=== PATIENT | female | born 1950 | race Caucasian/White ===

== ENCOUNTER 2017-10-20 13:15 | Inpatient (IN) | payer OTHER ==
[~2017-10-20] VITALS: Ht 167.6 cm; Wt 115.4 kg
[2017-11-08] MEDS ORDERED: FLUO-1 PO (12:34)
[2017-11-08] MEDS ORDERED: ACET650T11 PO (12:34)
[2017-11-08] MEDS ORDERED: LOSA50TA37 PO (12:34)
[2017-11-08] MEDS ORDERED: HYDR25TA4 PO (12:34)
[2017-11-08] MEDS ORDERED: AMLO5TAB16 PO (12:34)
[2017-11-08] MEDS ORDERED: CYCL-1 PO (12:34)
[2017-11-08] MEDS ORDERED: GABA600T2 PO (12:34)
[2017-11-08] MEDS ORDERED: HYDR50TA65 PO (12:34)
[2017-11-08] MEDS ORDERED: TIZA-248 PO (12:34)
[2017-11-08 13:59] LABS: CLARITY,URINE SLIGHTLY CLOUDY (Clear); COLOR,URINE YELLOW (Yellow); GLUCOSE, URINE NEGATIVE (Neg); KETONES,URINE NEGATIVE (Neg); LEUKOCYTE ESTERASE ,URINE NEGATIVE (Neg); NITRITES, URINE NEGATIVE (Neg); OCCULT BLOOD,URINE NEGATIVE (Neg); PROTEIN,URINE NEGATIVE (Neg); UROBILINOGEN,URINE 0.2 E.U/dL (0.2-1.0)
[2017-11-08 14:07] LABS: UA COLLECTION TYPE NON-SPECIFIED
[2017-11-08 14:15] LABS: BACTERIA,URINE NONE SEEN /HPF (Neg); RBC,URINE 0-2 /HPF (0-2); SQUAMOUS EPITHELIAL CELL,UR FEW /LPF (FEW); WBC,URINE NONE SEEN /HPF (0-4)
[2017-11-10] VITALS (20 sets, daily range): BP systolic 108–164; BP diastolic 50–87
[2017-11-10] MEDS ORDERED: ringers solution, lacted 1,000 ML IV SCH ×2 (05:00→10:50)
[2017-11-10] MEDS ORDERED: vancomycin inj 1,500 MG in normal saline 300ml IV soln IV ONE (05:30)
[2017-11-10] MEDS ORDERED: famotidine 20mg tablet PO ONE (05:30)
[2017-11-10] MEDS ORDERED: LIDOcaine 1% (10mg/ml) 2ml vial ONE (06:37)
[2017-11-10] MEDS ORDERED: MORPHINE SULFATE/PF 0.5 MG/ML 10ML AMPUL ONE ×2 (06:54→07:29)
[2017-11-10] MEDS ORDERED: vancomycin 1,000mg inj ONE (06:55)
[2017-11-10] MEDS ORDERED: ketorolac trometh. 30mg/ml inj. ONE (06:55)
[2017-11-10] MEDS ORDERED: ROPIVAcaine 0.5% (5mg/ml) 30ml vial ONE (06:55)
[2017-11-10] MEDS ORDERED: cloNIDine hcl/PF 100mcg/ml inj ONE (07:22)
[2017-11-10] MEDS ORDERED: fentaNYL/PF 50MCG/1 ML 2ML syringe ONE ×3 (07:24→09:54)
[2017-11-10] MEDS ORDERED: tranexamic acid inj. 1,000 MG in normal saline 100ml IV soln 90 ML IV ONE (07:25)
[2017-11-10] MEDS ORDERED: midazolam 2 mg/2 ml injection ONE ×2 (07:25)
[2017-11-10] MEDS ORDERED: tetracaine 1% (10mg/ml) pres. free inj. ONE (07:30)
[2017-11-10] MEDS ORDERED: furosemide 20 MG/2 ML vial ONE (07:37)
[2017-11-10] MEDS ORDERED: sevoflurane 250ml liquid IH ONE (07:37)
[2017-11-10] MEDS ORDERED: dexamethasone 4mg/ml inj ONE (07:51)
[2017-11-10] MEDS ORDERED: rocuronium 10mg/ml inj IV ONE (08:33)
[2017-11-10] MEDS ORDERED: phenylephrine 10mg/ml inj IV ONE (08:33)
[2017-11-10] MEDS ORDERED: ePHEDrine 50MG/ML INJ. ONE (08:33)
[2017-11-10] MEDS ORDERED: propofol inj 20 ML IV ONE (08:33)
[2017-11-10] MEDS ORDERED: LIDOcaine 2% (20mg/ml) 5ml vial ONE (08:33)
[2017-11-10] MEDS ORDERED: clindamycin phosphate 150mg/ml inj. ONE (10:33)
[2017-11-10] MEDS ORDERED: ondansetron/PF 4mg/2ml inj IV PRN ×2 (10:50→11:15)
[2017-11-10] MEDS ORDERED: meperidine/PF 25mg/ml syringe IV PRN ×3 (10:50)
[2017-11-10] MEDS ORDERED: proCHLORperazine 10 MG/2 ml inj IV PRN (10:50)
[2017-11-10] MEDS ORDERED: morphine 2 MG/ML inj. syringe IV PRN ×2 (10:50)
[2017-11-10] MEDS ORDERED: meperidine/PF 50mg/ml syringe IV PRN ×3 (10:58→10:59)
[2017-11-10] MEDS ORDERED: bisacodyl 10mg suppository rectal RC PRN (11:15)
[2017-11-10] MEDS ORDERED: diphenhydrAMINE 25mg capsule PO PRN ×2 (11:15)
[2017-11-10] MEDS ORDERED: magnesium hydroxide 30ml (MOM) UD suspension PO PRN (11:15)
[2017-11-10] MEDS ORDERED: acetaminophen 325mg tablet PO PRN (11:15)
[2017-11-10] MEDS ORDERED: gabapentin 300mg capsule PO SCH (13:00)
[2017-11-10] MEDS: oxyCODONE IR 5mg (immed. release) tablet PO PRN ×3 (13:56→20:27)
[2017-11-10] MEDS: acetaminophen 325mg tablet PO SCH ×2 (13:57→20:26)
[2017-11-10] MEDS ORDERED: tranexamic acid inj. 1,000 MG in normal saline 100ml IV soln 100 ML IV ONE (14:00)
[2017-11-10] MEDS ORDERED: non-formulary drug (Acetaminophen 2 TAB) PO PRN (16:10)
[2017-11-10] MEDS ORDERED: HYDROXYZINE HCL 25 MG PO PRN (16:10)
[2017-11-10] MEDS ORDERED: tizanidine 4mg tablet PO PRN (16:10)
[2017-11-10] MEDS ORDERED: cyclobenzaprine 10mg tablet PO PRN (16:23)
[2017-11-10] MEDS: clindamycin-Cleocin 900mg/D5W 50 ML IV SCH (16:27)
[2017-11-10] MEDS ORDERED: hydrOXYzine 25 MG tablet PO PRN (17:05)
[2017-11-10] MEDS: potassium cl 20mEq in 1/2 NS 1,000 ML IV SCH ×2 (17:20→19:14)
[2017-11-10] MEDS ORDERED: vancomycin/NS 1 GM ADD-VANTAGE 250 ML IV SCH (20:00)
[2017-11-10] MEDS: celeCOXIB 100mg capsule PO SCH (20:26)
[2017-11-10] MEDS: losartan 50mg tablet PO SCH (20:27)
[2017-11-10] MEDS: sennosides 8.6mg tablet PO SCH (20:27)
[2017-11-10] MEDS ORDERED: gabapentin 400mg capsule PO SCH ×2 (21:00)
[2017-11-10] MEDS ORDERED: non-formulary drug (Gabapentin 2 TAB) PO SCH (21:00)
[2017-11-10] MEDS: cyclobenzaprine 10mg tablet PO SCH (22:39)
[2017-11-10] MEDS: gabapentin 300mg capsule PO SCH (22:39)
[2017-11-11] MEDS: clindamycin-Cleocin 900mg/D5W 50 ML IV SCH ×2 (00:15→08:35)
[2017-11-11 02:00] VITALS: BP 115/60
[2017-11-11] MEDS: acetaminophen 325mg tablet PO SCH ×4 (02:52→19:11)
[2017-11-11] MEDS: oxyCODONE IR 5mg (immed. release) tablet PO PRN ×5 (02:54→20:28)
[2017-11-11] MEDS: potassium cl 20mEq in 1/2 NS 1,000 ML IV SCH ×3 (03:14→14:45)
[2017-11-11 06:00] VITALS: BP 133/66
[2017-11-11 06:44] LABS: BASOPHILS % (AUTO) 0.2 % (0-1); EOSINOPHILS % (AUTO) 0.6 % (0-6); HEMATOCRIT 24.8 % (35.0-45.0); HEMOGLOBIN 8.8 g/dl (12.0-16.0); LYMPHOCYTES # (AUTO) 0.5 X10'3 (1.1-4.8); LYMPHOCYTES % (AUTO) 10.6 % (21-51); MEAN CORPUSCULAR HGB CONC 35.6 % (33.0-36.5); MEAN CORPUSCULAR VOLUME 92.8 FL (78-98); MEAN PLATELET VOLUME 8.3 FL (7.4-10.4); MONOCYTES # (AUTO) 0.3 X10'3 (0-0.9); MONOCYTES % (AUTO) 6.7 % (2-12); NEUTROPHILS # (AUTO) 4.1 X10'3 (1.8-7.7); NEUTROPHILS % (AUTO) 81.9 % (42-75); PLATELET COUNT 78 X10'3 (140-440); RED BLOOD COUNT 2.67 X10'6 (4.20-5.60)
[2017-11-11 06:51] LABS: ANION GAP 8 (8-16); CHLORIDE 107 MMOL/L (99-107); POTASSIUM 4.7 MMOL/L (3.5-5.1); SODIUM 142 MMOL/L (135-145); TOTAL CARBON DIOXIDE 27.4 MMOL/L (24-32)
[2017-11-11] MEDS ORDERED: enoxaparin 40mg/0.4ml syringe SQ SCH (08:00)
[2017-11-11] MEDS: celeCOXIB 100mg capsule PO SCH ×2 (08:36→19:11)
[2017-11-11] MEDS: HYDROchlorothiazide 25mg tablet PO SCH (08:38)
[2017-11-11] MEDS: cyclobenzaprine 10mg tablet PO SCH ×2 (08:38→19:11)
[2017-11-11] MEDS: losartan 50mg tablet PO SCH ×2 (08:38→19:10)
[2017-11-11] MEDS: gabapentin 300mg capsule PO SCH ×2 (08:39→19:11)
[2017-11-11] MEDS: FLUoxetine 20mg capsule PO SCH (08:39)
[2017-11-11] MEDS: amLODIPine 5mg tablet PO SCH (08:39)
[2017-11-11 10:00] VITALS: BP 117/48
[2017-11-11 14:00] VITALS: BP 130/60
[2017-11-11 18:00] VITALS: BP 132/92
[2017-11-11] MEDS: sennosides 8.6mg tablet PO SCH (19:12)
[2017-11-11 22:00] VITALS: BP 114/48
[2017-11-12] MEDS: acetaminophen 325mg tablet PO SCH ×2 (02:00→08:00)
[2017-11-12] MEDS: potassium cl 20mEq in 1/2 NS 1,000 ML IV SCH (03:14)
[2017-11-12] MEDS: oxyCODONE IR 5mg (immed. release) tablet PO PRN ×4 (04:47→16:19)
[2017-11-12 05:54] LABS: HEMATOCRIT 23.8 % (35.0-45.0); HEMOGLOBIN 8.4 g/dl (12.0-16.0); MEAN CORPUSCULAR HEMOGLOBIN 33.2 PG (27.0-31.0); MEAN CORPUSCULAR HGB CONC 35.4 % (33.0-36.5); MEAN CORPUSCULAR VOLUME 93.9 FL (78-98); MEAN PLATELET VOLUME 8.5 FL (7.4-10.4); PLATELET COUNT 58 X10'3 (140-440); RED BLOOD COUNT 2.54 X10'6 (4.20-5.60); WHITE BLOOD COUNT 2.9 X10'3 (4.5-11.0)
[2017-11-12 06:00] VITALS: BP 144/55
[2017-11-12 07:43] LABS: PLATELET ESTIMATE DECREASED; TOTAL CELLS COUNTED 100
[2017-11-12 07:47] LABS: SPHEROCYTES FEW
[2017-11-12] MEDS: celeCOXIB 100mg capsule PO SCH ×2 (07:58→19:17)
[2017-11-12] MEDS: gabapentin 300mg capsule PO SCH ×2 (07:58→19:17)
[2017-11-12] MEDS: cyclobenzaprine 10mg tablet PO SCH ×2 (08:00→19:17)
[2017-11-12] MEDS: HYDROchlorothiazide 25mg tablet PO SCH (08:00)
[2017-11-12] MEDS: FLUoxetine 20mg capsule PO SCH (08:00)
[2017-11-12] MEDS: amLODIPine 5mg tablet PO SCH (08:01)
[2017-11-12] MEDS: losartan 50mg tablet PO SCH ×2 (08:01→19:17)
[2017-11-12] MEDS: aspirin 81mg tab.chew PO SCH ×2 (08:01→19:18)
[2017-11-12 10:00] VITALS: BP 149/68
[2017-11-12] MEDS ORDERED: acetaminophen 325mg tablet PO PRN (11:15)
[2017-11-12 18:00] VITALS: BP 143/61
[2017-11-12] MEDS: sennosides 8.6mg tablet PO SCH (20:39)
[2017-11-12 22:00] VITALS: BP 123/61
[2017-11-13] MEDS: oxyCODONE IR 5mg (immed. release) tablet PO PRN ×3 (02:08→12:32)
[2017-11-13 06:00] VITALS: BP 111/53
[2017-11-13 06:24] LABS: BASOPHILS % (AUTO) 0.3 % (0-1); EOSINOPHILS # (AUTO) 0.1 X10'3 (0-0.9); EOSINOPHILS % (AUTO) 2.7 % (0-6); HEMATOCRIT 22.5 % (35.0-45.0); LYMPHOCYTES # (AUTO) 0.7 X10'3 (1.1-4.8); LYMPHOCYTES % (AUTO) 24.5 % (21-51); MEAN CORPUSCULAR HEMOGLOBIN 33.3 PG (27.0-31.0); MEAN CORPUSCULAR HGB CONC 35.5 % (33.0-36.5); MEAN CORPUSCULAR VOLUME 93.6 FL (78-98); MEAN PLATELET VOLUME 7.8 FL (7.4-10.4); MONOCYTES # (AUTO) 0.2 X10'3 (0-0.9); MONOCYTES % (AUTO) 7.2 % (2-12); NEUTROPHILS # (AUTO) 1.8 X10'3 (1.8-7.7); NEUTROPHILS % (AUTO) 65.3 % (42-75); PLATELET COUNT 63 X10'3 (140-440); RED CELL DISTRIBUTION WIDTH 13.1 % (11.5-14.5); WHITE BLOOD COUNT 2.7 X10'3 (4.5-11.0)
[2017-11-13 07:12] LABS: HYPOCHROMASIA 1+; PLATELET ESTIMATE DECREASED; TOTAL CELLS COUNTED 100
[2017-11-13] MEDS: celeCOXIB 100mg capsule PO SCH (07:53)
[2017-11-13] MEDS: aspirin 81mg tab.chew PO SCH (07:53)
[2017-11-13] MEDS: gabapentin 300mg capsule PO SCH (07:53)
[2017-11-13] MEDS: HYDROchlorothiazide 25mg tablet PO SCH (07:53)
[2017-11-13] MEDS: FLUoxetine 20mg capsule PO SCH (07:53)
[2017-11-13] MEDS: losartan 50mg tablet PO SCH (07:53)
[2017-11-13] MEDS: amLODIPine 5mg tablet PO SCH (07:53)
[2017-11-13] MEDS: cyclobenzaprine 10mg tablet PO SCH (07:54)
[2017-11-13 10:00] VITALS: BP 107/57
[2017-11-13] MEDS ORDERED: ondansetron 4mg rapidly disintigrating tab PO ONE (10:00)
[2017-11-13] MEDS ORDERED: ASPI-1265 PO (10:10)
== END 2017-11-13 12:40 | disposition home or self-care (01) | DRG 470 ==
LOC: PAS IN 11-10 05:58 → EDSTATUS 11-10 07:30 → ORTHO 4S 11-10 13:05
PROVIDERS: ADMIT Orthopaedic Surgery; ATTEND Orthopaedic Surgery
PROC: 0QHB04Z Insertion of Internal Fixation Device into Right Lower Femur, Open Approach (ICD-10-PCS; 2017-11-10)
PROC: 0SRC0J9 Replacement of Right Knee Joint with Synthetic Substitute, Cemented, Open Approach (ICD-10-PCS; principal; 2017-11-10 07:37)
DX: M17.11 Unilateral primary osteoarthritis, right knee (principal); D62 Acute posthemorrhagic anemia; I10 Essential (primary) hypertension; F41.9 Anxiety disorder, unspecified; M21.00 Valgus deformity, not elsewhere classified, unspecified site; F32.9 Major depressive disorder, single episode, unspecified; G89.29 Other chronic pain; M54.9 Dorsalgia, unspecified; Z79.899 Other long term (current) drug therapy; Z88.0 Allergy status to penicillin; Z87.891 Personal history of nicotine dependence; Y93.89 Activity, other specified
CPT/HCPCS: 36415; 80051; 81001; 85025; 87070; 97110; 97116; 97162; 97530; A6255; A6455; A7000; C1713; C1758; C1776; C9250; J0735; J1100; J1650; J1885; J1940; J2001; J2250; J2274; J2370; J2704; J2795; J3010; J3370; J3490; J7030; J7120

== ENCOUNTER 2018-08-03 08:02 | Inpatient (IN) | payer MEDICARE ==
[2018-08-02 13:57] LABS: BASOPHILS % (AUTO) 0.1 % (0-1); EOSINOPHILS # (AUTO) 0.2 X10'3 (0-0.9); EOSINOPHILS % (AUTO) 3.8 % (0-6); LYMPHOCYTES # (AUTO) 0.7 X10'3 (1.1-4.8); LYMPHOCYTES % (AUTO) 16.4 % (21-51); MEAN CORPUSCULAR HEMOGLOBIN 30.3 PG (27.0-31.0); MEAN CORPUSCULAR HGB CONC 33.5 % (33.0-36.5); MEAN CORPUSCULAR VOLUME 90.3 FL (78-98); MEAN PLATELET VOLUME 8.7 FL (7.4-10.4); MONOCYTES # (AUTO) 0.3 X10'3 (0-0.9); MONOCYTES % (AUTO) 7.1 % (2-12); NEUTROPHILS % (AUTO) 72.6 % (42-75); PRE OP HEMATOCRIT 32.2 % (35.0-45.0); PRE OP PLATELET COUNT 105 X10'3 (140-440); RED BLOOD COUNT 3.57 X10'6 (4.20-5.60); RED CELL DISTRIBUTION WIDTH 13.8 % (11.5-14.5)
[2018-08-02 13:59] LABS: PRE OP HEMOGLOBIN 10.8 g/dL (12.0-16.0)
[2018-08-02 14:03] LABS: ALBUMIN 3.5 G/DL (3.4-5.0); ALBUMIN/GLOBULIN RATIO 0.8 (1.1-1.5); ALKALINE PHOSPHATASE 90 IU/L (46-116); BLOOD UREA NITROGEN 22 MG/DL (7-18); BUN/CREATININE RATIO 15.3 (6.6-38.0); CALCIUM 9.2 MG/DL (8.5-10.1); CHLORIDE 105 MMOL/L (99-107); CREATININE 1.44 MG/DL (0.40-0.90); PRE OP ALT 23 U/L (30-65); PRE OP ANION GAP 8 (8-16); PRE OP AST 24 U/L (10-37); PRE OP BILIRUB, TOTAL 0.4 MG/DL (0.0-1.0); PRE OP GLUCOSE 113 MG/DL (70-104); PRE OP POTASSIUM 4.3 MMOL/L (3.4-5.1); PRE OP SODIUM 140 MMOL/L (135-145); TOTAL CARBON DIOXIDE 27.4 MMOL/L (24-32); TOTAL PROTEIN 7.8 G/DL (6.4-8.2); eGFR 36 ML/MIN
[~2018-08-03] VITALS: Ht 167.6 cm; Wt 118.5 kg
[2018-08-03] VITALS (17 sets, daily range): BP systolic 88–144; BP diastolic 40–90
[2018-08-03] MEDS: gabapentin 300mg capsule PO ONE ×2 (05:30→08:45)
[~2018-08-03 08:02] MED LIST: AMLO5TAB16 PO; CLINDAmcin 900mg/NS 50ml IVPB 50 ML IV ONE; CYCL-1 PO; FLUO-1 PO; GABA600T2 PO; HYDR25TA4 PO; HYDR50TA65 PO; LIDOcaine 1% (10mg/ml) 2ml vial ONE; LOSA50TA21 PO; ROPIVAcaine 0.5% (5mg/ml) 30ml vial ONE; TIZA-248 PO; Thrombin (Bovine) 5,000 unit vial TP ONE; acetaminophen 325mg tablet PO ONE; epiNEPHrine 1 mg/ml inj ONE; famotidine 20mg tablet PO ONE; ketorolac trometh. 30mg/ml inj. ONE; metoclopramide 5 mg/ml inj IV ONE; morphine 10mg/ml inj. ONE; oxyCODONE SR 10mg (sust. release) tab -2 tabs (20mg) PO ONE; ringers solution, lacted 1,000 ML IV SCH; tranexamic acid inj. 1,000 MG in normal saline 100ml IV soln 90 ML IV ONE; vancomycin 1,000mg inj ONE; vancomycin inj 1,500 MG in normal saline 300ml IV soln IV ONE
[2018-08-03] MEDS ORDERED: TRAM50TA2 PO (08:25)
[2018-08-03] MEDS ORDERED: MULT-1181 (08:25)
[2018-08-03] MEDS ORDERED: MULT-1141 PO (08:25)
[2018-08-03] MEDS ORDERED: MIDAZolam 1mg/ml 10ml vial ONE (10:26)
[2018-08-03] MEDS ORDERED: fentaNYL/PF 50MCG/1 ML 2ML syringe ONE (10:26)
[2018-08-03] MEDS ORDERED: morphine /PF 1mg/ml 10ml inj. ONE (10:34)
[2018-08-03] MEDS ORDERED: LIDOcaine 1%/PF 5ML 10 MG/ML VIAL ONE (10:46)
[2018-08-03] MEDS ORDERED: propofol inj 20 ML IV ONE (10:46)
[2018-08-03] MEDS ORDERED: ringers solution, lacted 1,000 ML IV SCH (12:24)
[2018-08-03] MEDS ORDERED: ondansetron/PF 4mg/2ml inj IV PRN ×3 (12:25→13:25)
[2018-08-03] MEDS ORDERED: meperidine/PF 25mg/ml syringe IV PRN ×3 (12:25)
[2018-08-03] MEDS ORDERED: proCHLORperazine 10 MG/2 ml inj IV PRN (12:25)
[2018-08-03] MEDS ORDERED: morphine 4 MG/ML inj SYRINge IV PRN ×2 (12:25)
[2018-08-03] MEDS ORDERED: Thrombin (Bovine) 5,000 unit vial TP ONE (13:02)
[2018-08-03] MEDS ORDERED: naloxone 2mg/2ml inj 2 MG in normal saline 500ml IV soln 500 ML IV PRN (13:19)
[2018-08-03] MEDS ORDERED: diphenhydrAMINE 50 mg/ml inj IV PRN (13:20)
[2018-08-03] MEDS: acetaminophen 325mg tablet PO SCH ×2 (13:23→20:27)
[2018-08-03] MEDS ORDERED: HYDROmorphone 1 mg/ml syringe IV PRN (13:25)
[2018-08-03] MEDS ORDERED: magnesium hydroxide 30ml (MOM) UD suspension PO PRN (13:25)
[2018-08-03] MEDS ORDERED: bisacodyl 10mg suppository rectal RC PRN (13:25)
[2018-08-03] MEDS ORDERED: acetaminophen 325mg tablet PO PRN (13:25)
[2018-08-03] MEDS ORDERED: diphenhydrAMINE 25mg capsule PO PRN ×2 (13:25)
[2018-08-03] MEDS ORDERED: oxyCODONE IR 5mg (immed. release) tablet PO PRN (13:25)
[2018-08-03] MEDS: clindamycin 300mg/D5W 50mL 50 ML IV SCH ×2 (14:07→19:59)
[2018-08-03] MEDS: potassium cl 20mEq in 1/2 NS 1,000 ML IV SCH ×2 (16:10→21:23)
[2018-08-03] MEDS ORDERED: vancomycin/NS 1 GM ADD-VANTAGE 250 ML IV SCH (20:00)
[2018-08-03] MEDS: gabapentin 300mg capsule PO SCH (20:27)
[2018-08-03] MEDS: sennosides 8.6mg tablet PO SCH (20:27)
[2018-08-03] MEDS: oxyCODONE IR 5mg (immed. release) tablet PO PRN (21:56)
[2018-08-04] VITALS (8 sets, daily range): BP systolic 108–160; BP diastolic 38–63
[2018-08-04] MEDS: clindamycin 300mg/D5W 50mL 50 ML IV SCH ×3 (01:27→13:17)
[2018-08-04] MEDS: acetaminophen 325mg tablet PO SCH ×4 (01:27→20:23)
[2018-08-04] MEDS: oxyCODONE IR 5mg (immed. release) tablet PO PRN ×5 (02:44→22:08)
[2018-08-04] MEDS: potassium cl 20mEq in 1/2 NS 1,000 ML IV SCH (05:23)
[2018-08-04 07:03] LABS: BASOPHILS % (AUTO) 0.1 % (0-1); EOSINOPHILS # (AUTO) 0.1 X10'3 (0-0.9); EOSINOPHILS % (AUTO) 1.2 % (0-6); HEMATOCRIT 24.1 % (35.0-45.0); HEMOGLOBIN 7.9 g/dl (12.0-16.0); LYMPHOCYTES # (AUTO) 0.4 X10'3 (1.1-4.8); LYMPHOCYTES % (AUTO) 8.5 % (21-51); MEAN CORPUSCULAR HEMOGLOBIN 29.7 PG (27.0-31.0); MEAN CORPUSCULAR HGB CONC 32.7 % (33.0-36.5); MEAN CORPUSCULAR VOLUME 90.8 FL (78-98); MEAN PLATELET VOLUME 9.2 FL (7.4-10.4); MONOCYTES # (AUTO) 0.2 X10'3 (0-0.9); MONOCYTES % (AUTO) 5.2 % (2-12); NEUTROPHILS # (AUTO) 3.8 X10'3 (1.8-7.7); PLATELET COUNT 79 X10'3 (140-440); RED BLOOD COUNT 2.66 X10'6 (4.20-5.60); RED CELL DISTRIBUTION WIDTH 13.6 % (11.5-14.5); WHITE BLOOD COUNT 4.5 X10'3 (4.5-11.0)
[2018-08-04 07:10] LABS: ANION GAP 5 (8-16); CHLORIDE 106 MMOL/L (99-107); POTASSIUM 5.2 MMOL/L (3.5-5.1); SODIUM 137 MMOL/L (135-145)
[2018-08-04] MEDS ORDERED: tizanidine 4mg tablet PO PRN (07:30)
[2018-08-04] MEDS: cyclobenzaprine 10mg tablet PO SCH (08:00)
[2018-08-04] MEDS: hydrOXYzine 25 MG tablet PO SCH ×2 (08:00→20:00)
[2018-08-04] MEDS: FLUoxetine 20mg capsule PO SCH (08:31)
[2018-08-04] MEDS: losartan 50mg tablet PO SCH ×2 (08:33→20:22)
[2018-08-04] MEDS: amLODIPine 5mg tablet PO SCH (08:33)
[2018-08-04] MEDS: beta-carotene(A) w/C & E + minerals tab PO SCH (08:33)
[2018-08-04] MEDS: aspirin 81mg tablet.DR PO SCH (08:34)
[2018-08-04] MEDS: gabapentin 300mg capsule PO SCH ×3 (08:35→20:23)
[2018-08-04] MEDS: HYDROchlorothiazide 25mg tablet PO SCH (08:36)
[2018-08-04] MEDS ORDERED: pantoprazole 40mg Tablet.DR PO ONE (08:55)
[2018-08-04] MEDS ORDERED: calcium carbonate 500mg chew tablet PO PRN (08:55)
[2018-08-04] MEDS: sodium chloride 0.45% 1,000 ML IV SCH ×2 (10:17→19:28)
[2018-08-04] MEDS: HYDROmorphone 1 mg/ml syringe IV PRN ×2 (16:43→23:42)
[2018-08-04] MEDS: celeCOXIB 100mg capsule PO SCH (20:22)
[2018-08-04] MEDS: sennosides 8.6mg tablet PO SCH (20:23)
[2018-08-05] MEDS: oxyCODONE IR 5mg (immed. release) tablet PO PRN ×6 (02:17→21:49)
[2018-08-05] MEDS: acetaminophen 325mg tablet PO SCH ×2 (02:17→07:57)
[2018-08-05 05:58] LABS: BASOPHILS % (AUTO) 0.2 % (0-1); EOSINOPHILS # (AUTO) 0.1 X10'3 (0-0.9); EOSINOPHILS % (AUTO) 1.4 % (0-6); HEMATOCRIT 25.7 % (35.0-45.0); HEMOGLOBIN 8.4 g/dl (12.0-16.0); LYMPHOCYTES # (AUTO) 0.5 X10'3 (1.1-4.8); LYMPHOCYTES % (AUTO) 13.2 % (21-51); MEAN CORPUSCULAR HEMOGLOBIN 29.7 PG (27.0-31.0); MEAN CORPUSCULAR HGB CONC 32.8 % (33.0-36.5); MEAN CORPUSCULAR VOLUME 90.5 FL (78-98); MEAN PLATELET VOLUME 9.1 FL (7.4-10.4); MONOCYTES # (AUTO) 0.3 X10'3 (0-0.9); MONOCYTES % (AUTO) 7.3 % (2-12); NEUTROPHILS # (AUTO) 3.1 X10'3 (1.8-7.7); NEUTROPHILS % (AUTO) 77.9 % (42-75); PLATELET COUNT 79 X10'3 (140-440); RED BLOOD COUNT 2.84 X10'6 (4.20-5.60); RED CELL DISTRIBUTION WIDTH 14.1 % (11.5-14.5)
[2018-08-05 06:00] VITALS: BP 135/54
[2018-08-05] MEDS: beta-carotene(A) w/C & E + minerals tab PO SCH (07:56)
[2018-08-05] MEDS: celeCOXIB 100mg capsule PO SCH ×2 (07:56→20:34)
[2018-08-05] MEDS: losartan 50mg tablet PO SCH ×2 (07:56→20:34)
[2018-08-05] MEDS: amLODIPine 5mg tablet PO SCH (07:57)
[2018-08-05] MEDS: gabapentin 300mg capsule PO SCH ×3 (07:57→20:34)
[2018-08-05] MEDS: aspirin 81mg tablet.DR PO SCH (07:57)
[2018-08-05] MEDS: pantoprazole 40mg Tablet.DR PO SCH (07:57)
[2018-08-05] MEDS: HYDROchlorothiazide 25mg tablet PO SCH (07:57)
[2018-08-05] MEDS: FLUoxetine 20mg capsule PO SCH (07:57)
[2018-08-05] MEDS: cyclobenzaprine 10mg tablet PO SCH (08:00)
[2018-08-05] MEDS: hydrOXYzine 25 MG tablet PO SCH ×2 (08:00→20:00)
[2018-08-05 10:00] VITALS: BP 156/68
[2018-08-05] MEDS: HYDROmorphone 1 mg/ml syringe IV PRN (10:12)
[2018-08-05] MEDS ORDERED: ASPI-1071 PO (15:13)
[2018-08-05 17:00] VITALS: BP 148/63
[2018-08-05] MEDS ORDERED: lactose-reduced food (Ensure High Protein) 237ml bottle PO SCH (18:00)
[2018-08-05 20:28] VITALS: BP 157/70
[2018-08-05] MEDS: sennosides 8.6mg tablet PO SCH (20:34)
[2018-08-05 22:00] VITALS: BP 143/61
[2018-08-06] VITALS (12 sets, daily range): BP systolic 107–150; BP diastolic 45–101
[2018-08-06] MEDS: oxyCODONE IR 5mg (immed. release) tablet PO PRN ×6 (01:33→23:51)
[2018-08-06 06:09] LABS: BASOPHILS % (AUTO) 0.3 % (0-1); EOSINOPHILS # (AUTO) 0.1 X10'3 (0-0.9); EOSINOPHILS % (AUTO) 2.3 % (0-6); HEMOGLOBIN 7.4 g/dl (12.0-16.0); LYMPHOCYTES # (AUTO) 0.7 X10'3 (1.1-4.8); MEAN CORPUSCULAR HEMOGLOBIN 30.9 PG (27.0-31.0); MEAN CORPUSCULAR VOLUME 91.1 FL (78-98); MEAN PLATELET VOLUME 8.8 FL (7.4-10.4); MONOCYTES # (AUTO) 0.3 X10'3 (0-0.9); NEUTROPHILS # (AUTO) 1.9 X10'3 (1.8-7.7); NEUTROPHILS % (AUTO) 65.4 % (42-75); PLATELET COUNT 69 X10'3 (140-440); RED BLOOD COUNT 2.39 X10'6 (4.20-5.60); RED CELL DISTRIBUTION WIDTH 13.8 % (11.5-14.5); WHITE BLOOD COUNT 2.9 X10'3 (4.5-11.0)
[2018-08-06 06:12] LABS: HEMATOCRIT 21.8 % (35.0-45.0)
[2018-08-06 06:47] LABS: PLATELET ESTIMATE DECREASED; POLYCHROMASIA 1+; TOTAL CELLS COUNTED 100
[2018-08-06] MEDS: beta-carotene(A) w/C & E + minerals tab PO SCH (07:53)
[2018-08-06] MEDS: HYDROchlorothiazide 25mg tablet PO SCH (07:53)
[2018-08-06] MEDS: pantoprazole 40mg Tablet.DR PO SCH (07:53)
[2018-08-06] MEDS: aspirin 81mg tablet.DR PO SCH (07:53)
[2018-08-06] MEDS: celeCOXIB 100mg capsule PO SCH ×2 (07:53→20:29)
[2018-08-06] MEDS: FLUoxetine 20mg capsule PO SCH (07:53)
[2018-08-06] MEDS: amLODIPine 5mg tablet PO SCH (07:53)
[2018-08-06] MEDS: gabapentin 300mg capsule PO SCH ×3 (07:53→20:29)
[2018-08-06] MEDS: losartan 50mg tablet PO SCH ×2 (07:53→20:29)
[2018-08-06] MEDS: cyclobenzaprine 10mg tablet PO SCH (08:00)
[2018-08-06] MEDS: hydrOXYzine 25 MG tablet PO SCH ×2 (08:00→20:00)
[2018-08-06] MEDS: sennosides 8.6mg tablet PO SCH (20:29)
[2018-08-07] MEDS: oxyCODONE IR 5mg (immed. release) tablet PO PRN ×3 (04:07→12:53)
[2018-08-07 06:00] VITALS: BP 114/70
[2018-08-07 06:14] LABS: HEMATOCRIT 26.6 % (35.0-45.0); HEMOGLOBIN 8.9 g/dl (12.0-16.0); MEAN CORPUSCULAR HEMOGLOBIN 30.5 PG (27.0-31.0); MEAN CORPUSCULAR HGB CONC 33.3 % (33.0-36.5); MEAN CORPUSCULAR VOLUME 91.5 FL (78-98); MEAN PLATELET VOLUME 8.8 FL (7.4-10.4); PLATELET COUNT 73 X10'3 (140-440); RED CELL DISTRIBUTION WIDTH 14.3 % (11.5-14.5); WHITE BLOOD COUNT 2.8 X10'3 (4.5-11.0)
[2018-08-07 07:08] LABS: ANISOCYTOSIS 1+; PLATELET ESTIMATE NORMAL; POLYCHROMASIA FEW; TOTAL CELLS COUNTED 100
[2018-08-07 07:18] LABS: ALANINE AMINOTRANSFERASE 17 U/L (12-78); ALBUMIN 2.5 G/DL (3.4-5.0); ALBUMIN/GLOBULIN RATIO 0.7 (1.1-1.5); ALKALINE PHOSPHATASE 64 IU/L (46-116); ANION GAP 5 (8-16); ASPARTATE AMINO TRANSFERASE 20 U/L (10-37); BILIRUBIN,TOTAL 0.6 MG/DL (0.1-1.0); BLOOD UREA NITROGEN 20 MG/DL (7-18); BUN/CREATININE RATIO 18.7 (6.6-38.0); CALCIUM 8.7 MG/DL (8.5-10.1); CHLORIDE 104 MMOL/L (99-107); CREATININE 1.07 MG/DL (0.40-0.90); GLUCOSE 102 MG/DL (70-104); POTASSIUM 4.3 MMOL/L (3.5-5.1); SODIUM 138 MMOL/L (135-145); TOTAL CARBON DIOXIDE 28.8 MMOL/L (24-32); TOTAL PROTEIN 6.3 G/DL (6.4-8.2); eGFR 51 ML/MIN
[2018-08-07] MEDS: beta-carotene(A) w/C & E + minerals tab PO SCH (07:42)
[2018-08-07] MEDS: celeCOXIB 100mg capsule PO SCH (07:42)
[2018-08-07] MEDS: gabapentin 300mg capsule PO SCH ×2 (07:42→12:51)
[2018-08-07] MEDS: aspirin 81mg tablet.DR PO SCH (07:42)
[2018-08-07] MEDS: pantoprazole 40mg Tablet.DR PO SCH (07:43)
[2018-08-07] MEDS: losartan 50mg tablet PO SCH (07:43)
[2018-08-07] MEDS: FLUoxetine 20mg capsule PO SCH (07:43)
[2018-08-07] MEDS: amLODIPine 5mg tablet PO SCH (07:43)
[2018-08-07] MEDS: HYDROchlorothiazide 25mg tablet PO SCH (07:43)
[2018-08-07] MEDS: cyclobenzaprine 10mg tablet PO SCH (07:43)
[2018-08-07] MEDS: hydrOXYzine 25 MG tablet PO SCH (07:49)
[2018-08-07 10:00] VITALS: BP 112/59
== END 2018-08-07 13:45 | disposition home or self-care (01) | DRG 470 ==
LOC: PAS IN 08:02 → EDSTATUS 10:15 → ORTHO 4S 15:10
PROVIDERS: ADMIT Orthopaedic Surgery; ATTEND Orthopaedic Surgery
PROC: 3E0T3BZ Introduction of Anesthetic Agent into Peripheral Nerves and Plexi, Percutaneous Approach (ICD-10-PCS; 2018-08-03)
PROC: 0SRD0J9 Replacement of Left Knee Joint with Synthetic Substitute, Cemented, Open Approach (ICD-10-PCS; principal; 2018-08-03 10:27)
PROC: 30233N1 Transfusion of Nonautologous Red Blood Cells into Peripheral Vein, Percutaneous Approach (ICD-10-PCS; 2018-08-06)
DX: M17.12 Unilateral primary osteoarthritis, left knee (principal); Z68.41 Body mass index [BMI] 40.0-44.9, adult; D50.0 Iron deficiency anemia secondary to blood loss (chronic); E66.01 Morbid (severe) obesity due to excess calories; F41.9 Anxiety disorder, unspecified; I10 Essential (primary) hypertension; M54.9 Dorsalgia, unspecified; G89.29 Other chronic pain; F32.9 Major depressive disorder, single episode, unspecified; Z96.651 Presence of right artificial knee joint; Z79.899 Other long term (current) drug therapy
CPT/HCPCS: 36415; 80051; 80053; 85025; 86885; 86900; 86901; 86920; 87070; 97110; 97116; 97161; 97530; A6455; A7000; C1713; C1758; C1776; G0378; J0171; J1170; J1885; J2001; J2250; J2270; J2274; J2405; J2704; J2765; J2795; J3010; J3370; J3490; J7030; J7120; P9016; Q0177; X5958